=== PATIENT | female | born 1950 | race Two or more races ===

== ENCOUNTER 2016-10-04 06:44 | Emergency (ER) | payer OTHER ==
[2016-10-04 07:03] VITALS: BP 190/89; PULSE 69; TEMP 98.2; BMI 25.1
--- NOTE | 2016-10-04 07:24 | PDOC ---
History of Present Illness - General Chief Complaint: Foreign Body (FB) Stated Complaint: HAS QTIP IN EAR Time Seen by Provider: 10/04/16 07:13 History Source: Patient Exam Limitations: No Limitations - History of Present Illness Initial Comments: CHIEF COMPLAINT: 65 y/o afebrile female with PMH HTN and DM2 c/o qtip in left ear. HISTORY OF PRESENT ILLNESS: The patient states this happened this morning. She also admits she has not taken her blood pressure medication yet today. She denies IRENE, neck pain, changes in vision/hearing, CP, SOB, palpitations and all other symptoms. Vital signs on arrival are notable for BP of 190/89. REVIEW OF SYSTEMS: GENERAL/CONSTITUTIONAL: No fever/chills. No weakness. No weight change. HEAD, EYES, EARS, NOSE AND THROAT: No change in vision. No ear pain or discharge. No sore throat. +Qtip in left ear CARDIOVASCULAR: No chest pain or shortness of breath. RESPIRATORY: No cough, wheezing, or hemoptysis. GASTROINTESTINAL: No abd pain, nausea, vomiting, diarrhea. GENITOURINARY: No dysuria, frequency, or change in urination. MUSCULOSKELETAL: No joint or muscle swelling or pain. No neck or back pain. SKIN: No rash or easy bruising. NEUROLOGIC: No headache, vertigo, loss of consciousness, or loss of sensation. PHYSICAL EXAM: GENERAL: The patient is awake, alert, and fully oriented, in no acute distress. ENT: White cotton of q-tip seen in left ear canal. No bleeding from left ear. EXTREMITIES: Normal range of motion, no edema. NEUROLOGICAL: Normal speech, normal gait. SKIN: Warm, Dry, normal turgor, no rashes or lesions noted. Past History - Past Medical History Allergies/Adverse Reactions: Allergies Allergy/AdvReac Type Severity Reaction Status Date / Time No Known Allergies Allergy Verified 10/04/16 07:10 Home Medications: Ambulatory Orders Atenolol [Tenormin -] 50 mg PO DAILY 10/04/16 Metformin HCl 500 mg PO DAILY 10/04/16 Diabetes: Yes HTN: Yes - Immunization History Immunization Up to Date: No - Psycho/Social/Smoking Cessation Hx Suicidal Ideation: No Smoking History: Never smoked Hx Alcohol Use: No Drug/Substance Use Hx: No *Physical Exam - Vital Signs Last Vital Signs Temp Pulse Resp BP Pulse Ox 98.2 F 69 17 190/89 99 10/04/16 07:00 10/04/16 07:00 10/04/16 07:00 10/04/16 07:00 10/04/16 07:00 Medical Decision Making - Medical Decision Making A/P: 65 y/o female with foreign body in left ear. Removed qtip with forceps without difficulty. Pt tolerated procedure well. Repeat ear exam reveals complete removal of FB from canal. The patient was instructed to take her BP meds as soon as she gets home. The patient verbalizes understanding of all instructions, has no further questions and is awaiting discharge. *DC/Admit/Observation/Transfer Diagnosis at time of Disposition: Foreign body of ear, left Qualifiers: Encounter type: initial encounter Qualified Code(s): T16.2XXA - Foreign body in left ear, initial encounter - Discharge Dispostion Disposition: HOME Condition at time of disposition: Improved - Referrals Referrals: Chandra Kaufman MD [Primary Care Provider] - - Patient Instructions Printed Discharge Instructions: DI for Removal of Foreign Body From Ear Additional Instructions: Discharge Instructions: -Do not use Q-tips to clean ears -Return to the ER with any worsening or concerning symptoms
== END 2016-10-04 07:41 | disposition home or self-care (01) ==
LOC: JER 06:44
PROC: 09C47ZZ Extirpation of Matter from Left External Auditory Canal, Via Natural or Artificial Opening (ICD-10-PCS; principal; 2016-10-04)
DX: T16.2XXA Foreign body in left ear, initial encounter (principal); I10 Essential (primary) hypertension; E11.9 Type 2 diabetes mellitus without complications; Z79.84 Long term (current) use of oral hypoglycemic drugs
CPT/HCPCS: 99282-25